=== PATIENT | female | born 1970 | race Caucasian/White ===

== ENCOUNTER 2024-09-23 17:57 | Emergency (ER) | payer BC, OTHER ==
[~2024-09-23] VITALS: Ht 165.1 cm; Wt 108.2 kg
[2024-09-23 19:21] VITALS: TEMP 98.5
[2024-09-23 19:36] LABS: GLUCOMETER DEV NAME(LOC) ERT.6; GLUCOSE,POINT OF CARE 443 MG/DL (70-110)
[2024-09-23 20:28] LABS: BASOPHILS % (AUTO) 1.1 % (0.0-2.0); EOSINOPHILS % (AUTO) 1.8 % (1.0-6.0); HEMATOCRIT 49.7 % (36-46); HEMOGLOBIN 16.3 g/dL (12.0-16.0); LYMPHOCYTES # (AUTO) 1.8 K/uL (1.0-4.8); LYMPHOCYTES % (AUTO) 23.7 % (22.0-44.0); MEAN CORPUSCULAR HEMOGLOBIN 26.1 pg (26.0-34.0); MEAN CORPUSCULAR HGB CONC 32.8 G/dL (31.0-37.0); MEAN CORPUSCULAR VOLUME 80 fL (80-100); MONOCYTES # (AUTO) 0.5 K/uL (0.1-1.0); MONOCYTES % (AUTO) 7.3 % (2.0-9.0); NEUTROPHILS # (AUTO) 4.9 K/uL (1.8-7.7); NEUTROPHILS % (AUTO) 66.1 % (40.0-70.0); PLATELET COUNT (AUTO) 234 K/uL (150-450); RED BLOOD CELL COUNT(AUTO) 6.25 MIL/uL (4.00-5.20); RED CELL DISTRIBUTION WIDTH 14.9 % (11.5-14.5); WHITE BLOOD COUNT (AUTO) 7.4 K/uL (4.5-11.0)
[2024-09-23 20:39] LABS: ANION GAP 8 mmol/L (8-16); CALCIUM, TOTAL 9.3 mg/dL (8.8-10.5); CARBON DIOXIDE 30 mmol/L (22-29); CHLORIDE 97 mmol/L (98-107); CREATININE 0.87 mg/dL (0.60-1.30); GLOMERULAR FILTR. RATE CALC > 60 mL/min (>60); POTASSIUM 4.2 mmol/L (3.5-5.1); SODIUM SERUM 135 mmol/L (136-145); UREA NITROGEN, BLOOD 12 mg/dL (7-18)
[2024-09-23 20:44] LABS: TROPONIN I-HIGH SENSITIVITY 30 ng/L (<51)
[2024-09-23 20:45] LABS: GLUCOSE,RANDOM 418 mg/dL (70-110)
[2024-09-23 20:46] LABS: B-TYPE NATRIURETIC PEPTIDE 52 pg/mL (0-100)
[2024-09-23] MEDS: SODIUM CHLORIDE 0.9% 1,000 ML IV ONE (21:20)
[2024-09-23] MEDS: INSULIN REGULAR, HUMAN 100 UNITS/ML IVP ONE (21:20)
[2024-09-23] MEDS: LABETALOL HCL 5 MG/ML 20 ML VIAL IVP ONE (21:21)
[2024-09-23 22:58] VITALS: BP 119/76; PULSE 83; RESP 16; O2SAT 99
== END 2024-09-23 23:13 | disposition home or self-care (01) ==
LOC: EMS 17:57
DX: I10 Essential (primary) hypertension (principal); E11.65 Type 2 diabetes mellitus with hyperglycemia; Z90.49 Acquired absence of other specified parts of digestive tract
CPT/HCPCS: 99285; 96374; 71045; 96361; 96375; 80048; 82962; 83880; 84484; 85025; 36415; 93005; J3490; J7030; J1815

== ENCOUNTER 2025-06-30 17:42 | Emergency (ER) | payer BC ==
[~2025-06-30] VITALS: Ht 165.1 cm; Wt 109.1 kg
[2025-06-30 17:44] VITALS: TEMP 97.9
[2025-06-30] MEDS ORDERED: AMLO5TAB66 PO (17:48)
[2025-06-30] MEDS ORDERED: GABA-1181 PO (17:48)
[2025-06-30] MEDS ORDERED: METF-445 PO (17:48)
[2025-06-30] MEDS ORDERED: LOSA100T59 PO (17:48)
[2025-06-30] MEDS ORDERED: TIRZ10PE SQ (17:48)
[2025-06-30] MEDS ORDERED: ROSU10TA72 PO (17:48)
[2025-06-30] MEDS: KETOROLAC TROMETHAMINE 30 MG/ML VIAL IM ONE (19:39)
[2025-06-30] MEDS ORDERED: TRAM50TA5 PO (22:55)
[2025-06-30 23:24] VITALS: BP 135/85; PULSE 76; RESP 18; O2SAT 99
[2025-06-30] MEDS: SODIUM CHLORIDE 0.9% 1,000 ML IV ONE (23:34)
[2025-07-01] MEDS: HYDROCODONE/ACETAMINOPHEN 5-325 MG TABLET PO ONE (00:34)
== END 2025-07-01 03:12 | disposition home or self-care (01) ==
LOC: EMS 17:42
DX: M25.9 Joint disorder, unspecified (principal); E11.9 Type 2 diabetes mellitus without complications; I10 Essential (primary) hypertension; Z79.84 Long term (current) use of oral hypoglycemic drugs; Z79.85 Long-term (current) use of injectable non-insulin antidiabetic drugs; Z90.49 Acquired absence of other specified parts of digestive tract; Z79.899 Other long term (current) drug therapy
CPT/HCPCS: 99285; 96360; 96361; 73562; 96372; 93971; J1885; J7030